=== PATIENT | female | born 2005 | race Caucasian/White ===

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

== ENCOUNTER 2025-02-20 17:29 | Emergency (ER) | payer SELFPAY ==
[2025-02-20 17:31] VITALS: BP 129/81; PULSE 108; RESP 16; TEMP 37.2; O2SAT 99
--- OUTSIDE RECORDS SUMMARY | 2025-02-20 17:32 | XMS_ITS | Clinical Summary ---
Author Organization [facility] Address [address] [place] [address] Phone Care Team Providers Care Director Business Development Name Role Phone Lakesha Tyler MD Primary Care Provider + Sudarshan Mendoza MD Unavailable Lm Hewitt MD Unavailable [phone] Allergies Active Allergy Reactions Criticality Noted Date Comments Diphenhydramine Hives,Rash Medium 06/22/2021 Liquid benadryl only Medications methylPREDNISol one (MEDROL DOSPACK) 4 MG Tablet Therapy Pack See product package insert for dosing schedule 21 Tablet 4 Active Additional Information Patient not taking.Reported on 07/30/2024 pantoprazole (PROTONIX) 40 MG Tablet Delayed Response Take 1 Tablet by mouth daily. 30 Tablet 5 Active meclizine (ANTIVERT) 12.5 MG Tablet Take 2 Tablets by mouth every 8 hours as needed for Dizziness or Nausea. 90 Tablet 3 5 Active Active Problems Problem Noted Date Diagnosed Date Costochondritis 08/12/2024 Assessment & Plan (08/12/2024 12:33 PM MEDICAL SERVICES COORDINATOR): Pain to chest mid sternal, sharp pain, especially with running and inhalation. Denies palpitation. Likely Muscleskeletal. Discussed naproxen Bid as needed. Heating pad to chest to help with discomfort. Physical therapy for stretches and management. Injury of left toe 08/12/2024 Assessment & Plan (08/12/2024 12:36 PM MEDICAL SERVICES COORDINATOR): Toe injury with bruising noted. Able to bend and move toe. Patient reports improvement. Discussed if not improving or symptoms worsening to RTC Vertigo 05/29/2024 Assessment & Plan (08/12/2024 12:35 PM MEDICAL SERVICES COORDINATOR): CN VIII, reports hearing loss to right TM. Unbalance. Denies Headaches. Has had ext ensive workup at [facility] will send to Neurology. Referral placed to neurology. Discussed keeping track of symptoms, if worsening to be evaluated immediately. Nausea 05/29/2024 Lower abdominal pain 05/29/2024 Chest pain 10/23/2023 Assessment & Plan (04/30/2024 9:30 AM CDT): Discussed with patient similar symptoms before. Had reassuring work up in ED. Will Add ESR, CRP and repeat CBC. Started Ibuprofen, and famotidine. Discussed calling cardiology for appointment as symptoms are reappearing. Seek emergent medical attention if symptoms worsen. Assessment & Plan (10/23/2023 8:44 AM CDT): Patient likely with pericarditis following viral infection. Was seen in ED. Lab work negative. Chest Xray negative. Very active in Sports. 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 Sending to Cardiology for clearance and further workup if warranted. Currently no PE, Sports, Working out, or heavy lifting. Per patient chest pain is improving, but still there. Discussed taper of indomethacin 1 capsule TID, also discussed importance of GI prophylaxsis. Start Protonix. Sprain of anterior talofibular ligament of right ankle 06/12/2023 Overview (06/14/2023): 06/2023 [facility] Faby Martinez MD; on review xray was negative. Continue Cam walker boot. Out of all activities. Follow up in 2-3 weeks. Assessment & Plan (06/27/2023 3:11 PM MEDICAL SERVICES COORDINATOR): Patient with improvement significantly. Has good ROM. Jump without difficulty. No pain and tenderness. Will release with slow return to play protocol. If any new onset of symptoms, stop immediately and follow up. Assessment & Plan (06/12/2023 8:03 AM MEDICAL SERVICES COORDINATOR): Xray done at [facility] 1 day ago, discussed small joint effusion, no osseous abnormality, However, patient reports significant more swelling and bruising to right Ankle. Did not think at this time xray would benefit and recommended FU with orthopedics. Referral placed. Discussed ice to ankle. May use wheelchair during school to get to classes to limit weight bearing and discomfort. Discussed crutches as needed. Elevation of foot. Chest tightness 02/18/2020 Assessment & Plan (03/30/2022 2:36 PM CDT): Not currently bad. Assessment & Plan (03/23/2021 10:52 AM CDT): Cardiology at [facility] cleared patient when sent for eval with normal EKG and echo. No history of COVID. Pt with no chest complaints today. Assessment & Plan (02/18/2020 2:33 PM CDT): Pt only to be cleared for sports after [facility] Cardiology clears her due to her chest tightness. Referred her to them today. Encounter for routine child health examination without abnormal findings 09/08/2018 Assessment & Plan (03/23/2021 10:53 AM CDT): Anticipatory guidance done including seat belt safety and water safety. Fire safety and bug avoidance discussed. Sexual preferences, safe sex practices, and discussion on healthy relationships discussed. Maintaining healthy friendships, bullying, and mental health also discussed. Handout given to reiterate important points. Vaccines UTD. Vision screen passed today. PHQ2 negative for depression. Vision Screening Edited by: Rochelle Palumbo Right eye Left eye Both eyes Without correction 20/20 20/20 20/20 Assessment & Plan (09/08/2018 8:53 AM MEDICAL SERVICES COORDINATOR): Flu vaccine administered today. Encounter for routine child health examination without abnormal findings 03/03/2018 Assessment & Plan (03/30/2022 2:38 PM CDT): Anticipatory guidance done including seat belt safety and water safety. Fire safety and bug avoidance discussed. Sexual preferences, safe sex practices, and discussion on healthy relationships discussed. Maintaining healthy friendships, bullying, and mental health also discussed. Handout given to reiterate important points. 5-2-1-0 (5 fruits and vegetables per day, less than 2 hours of screen time per day, at least 1 hour of activity per day, and 0 sweetened beverages) also discussed. Vision screen passed today. Vaccines updated today. Vision Screening Edited by: Riccardo Jiang CMA Right eye Left eye Both eyes Without correction 20/15 20/20 20/15 Assessment & Plan (02/18/2020 2:30 PM CDT): Anticipatory guidance done including seat belt safety and water safety. Fire safety and bug avoidance discussed. Sexual preferences, safe sex practices, and discussion on healthy relationships discussed. Maintaining healthy friendships, bullying, and mental health also discussed. Handout given to reiterate important points. Vaccines UTD. PHQ2 negative for depression. Assessment & Plan (02/04/2019 8:58 AM CDT): Anticipatory guidance done including seat belt safety, avoidance of drugs and alcohol, bullying, monitoring Internet/social media use, knowing child's friends, encouraging independence and self responsibility, showing affection and praise appropriately. Sun safety and bug avoidance discussed. Mental health counseling discussed. Discussed healthy diet and exercise including 5-2-1-0 (5 fruits and vegetables per day, less than 2 hours of screen time per day, at least 1 hour of activity per day, and 0 sweetened beverages. Vaccines up to date. Hearing and vision screens normal. Growth and development appropriate. Patient with dental home. School physical form completed and given to mom. Assessment & Plan (03/03/2018 10:39 AM CDT): Maxime is a 12 year old female with history of ADHD who presents for a sports physical and WCC. No concerns or complaints at this time. Plan: - Age Appropriate anticipatory guidance discussed: avoiding smoking, alcohol, and drugs, safe sex education, sleep hygiene, physical activity, healthy nutrition, seat belts, sun safety, limit screen time, healthy coping skills - Cleared for sports - sports and school form completed and given to mother. Copy made to keep on file in office. - Immunizations: UTD - Lipid and HgbA1c obtained 1 year ago. Results were unremarkable at that time. Repeat at age 15. - PHQ-2: score of 0 within the past 1 year, negative for depression. Repeat 07/26. - Has dentist- importance of regular dental visits - Follow up in [address] [facility] Sports physical 03/03/2018 Assessment & Plan (03/30/2022 2:39 PM CDT): Pt medically stable for participation in sports. Heart auscultated in 3 different positions. No history of COVID. Sports physical form completed today. Assessment & Plan (03/23/2021 10:55 AM CDT): Pt medically stable for participation in sports. Heart auscultated in 3 different positions. No history of COVID. Sports physical form completed today. Overweight child 10/31/2017 Assessment & Plan (03/23/2021 10:54 AM CDT): Pt eating much healthier and has lost 11lbs. Celebrated her on her success and advised her to maintain a healthy lifestyle. Assessment & Plan (02/18/2020 2:04 PM CDT): Extensively counseled pt on 5-2-1-0 (5 fruits and vegetables per day, less than 2 hours of screen time per day, at least 1 hour of activity per day, and 0 sweetened beverages). Assessment & Plan (03/03/2018 9:32 AM CDT): Patient's BMI is 91 %ile (Z= 1.35) based on CDC 2-20 Years BMI-for-age data using vitals from 03/03/2018. Plan: Extensive dietary counseling including 5-2-1-0 (5 fruits and vegetables per day, less than 2 hours of screen time per day, at least 1 hour of activity per day, and 0 sweetened beverages) done today. Assessment & Plan (02/27/2018 9:35 AM CDT): Extensive dietary counseling including 5-2-1-0 (5 fruits and vegetables per day, less than 2 hours of screen time per day, at least 1 hour of activity per day, and 0 sweetened beverages) done today. Assessment & Plan (10/31/2017 5:35 PM CDT): Pt doing well maintaining weight since last visit. Pt states that she is very active and also eats less. Feels proud for not gaining weight. Resolved Problems Problem Noted Date Diagnosed Date Resolved Date Jaw pain 09/08/2018 03/23/2021 Assessment & Plan (02/18/2020 2:02 PM CDT): Improved. Assessment & Plan (09/08/2018 8:52 AM MEDICAL SERVICES COORDINATOR): Pt feels like jaw locks up intermittently for past year, and now is a bit sore. Told pt to follow up with dentist. If no improvement with dentist's regime, will consider OMFS referral. Curvature of spine 03/03/2018 8 Assessment & Plan (03/03/2018 10:40 AM CDT): Slight curvature of thoracic spine noted on exam today. Denies back pain. Plan: - Xray ordered - Will follow up after xray results Viral warts 10/31/2017 03/30/2022 Overview (03/23/2021): 01/2018- Pt seen by [facility] Sales Systems Engineer, Dr. Jennifer Garcia. Pt had cryotherapy done for 3 warts. Pt was to follow up in 4 weeks. Overview: onset age 11 01/30/18 #3, <5 mm, palm; LN2 to all; garlic; anticipatory guidance onset age 11 01/30/18 #3, <5 mm, palm; LN2 to all; garlic; anticipatory guidance Assessment & Plan (03/23/2021 10:54 AM CDT): Warts are gone. Assessment & Plan (10/31/2017 5:34 PM CDT): As per Mom, pt has tried OTC freezing treatments x 3 without resolution or any improvement in warts. Dermatology referral placed today with appt on January 30 at 1330 at [facility]. Sales Systems Engineer staff recommended that pt try Salicylic Acid 40% with duct tape on top, and removal 24-48hrs after. Handout given to Mom on this technique via [facility] D[facility]at[facility]. Attention deficit hyperactiv ity disorder (ADHD), combined type 03/25/2017 03/23/2021 Overview (06/11/2018): 06/2018- Follow up [place] received by Ms. Morrissey, Science and algology teacher, AM and PM classes; negative for ADHD as there were no problems with classroom behavior performance, and teacher is not for math, reading, written expression so the academic performance section was not filled in; 03/16 2-3 responses on #1-9- very often- difficulty sustaining attention to tasks, easily distracted by extraneous stimuli, often- fails to give attention to details, does not listen when spoken to directly, does not follow through on instructions, difficulty organizing tasks and activities, avoids engaging in tasks that require sustained mental effort, loses things necessary for tasks, forgetful in daily activities; 09/13 2-3 responses for #10-18- often- fidgets, leaves seat in classroom, driven by a motor; negative for ODD and anxiety. 06/2018- Follow up [place] received by Ms. Ocampo, children teacher, 6th hr- 09/13 2-3 responses on #1-9- often- difficulty sustaining attention to tasks, avoids, dislikes to engage in tasks that require sustained mental effort, easily distracted by extraneous stimuli; 09/13 2-3 responses on #10-18 including very often- leaves seat in classroom, often- talks excessively, interrupts others; also positive for bullying others often, pt also often blames self or feels lonely, relationship with peers was somewhat of a problem- overall was negative for ADHD, ODD, anxiety 06/2018- Follow up [place] received by Mrs. Hoffmann, social studies teacher, morning and afternoon classes- 09/13 2- responses on #1-9- very often- difficulty sustaining attention, often- fails to give attention to details, easily distracted by extraneous stimuli, / 2-3 repsponses on #10-18- very often- difficulty playing quietly, talks excessively, often- fidgets, leaves seat, is driven by motor, somewhat of a problem- reading, written expression, relationship with peers- overall was negative for ADHD, ODD, anxiety, comments- Maxime is a sweet girl, but is often wrapped in drama with peers. She tries hard most days, but is often chatty. She has a wonderful spirit and is very easy to please. She is respectful to adults. 07/29/17- Follow up [place] received by Ms. Morrissey as afternoon medication was specifically started for this class (LOCO/VLADIMIR). 11/13 2-3 responses on #1-9, 8/ 2-3 responses on #10-18. Pt positive for ADHD, hyperactive type. Teacher also believes that readying, writing, mathematics, and relationship with peers are somewhat of a problem. These are all unchanged since starting afternoon medications. Possible that pt has difficulty with subject, further hindering her behavior. Will ask patient what her grades are specifically for this class. Assessment & Plan (02/18/2020 2:32 PM CDT): Pt stable off medications, doing very well in school. Assessment & Plan (09/08/2018 8:51 AM MEDICAL SERVICES COORDINATOR): Pt doing well on Concerta and Adderall IR. Will represcribe meds today. Vanderbilts were negative from teachers, given on 06/2018. Pt to follow up in 3mo for ADHD follow up. Assessment & Plan (06/09/2018 9:00 AM MEDICAL SERVICES COORDINATOR): Mom's [place] negative for ADHD symptoms today. Pt doing very well on medications. Teachers for main subjects given Vanderbilts today. Meds refilled. Will follow up with patient in 3mo if teacher Vanderbilts are without significant concerns. Assessment & Plan (02/27/2018 9:21 AM CDT): Adderall refill given to pt. Concerta refill not needed at this time as per Mom. Pt to return in 3mo for ADHD management. Assessment & Plan (11/25/2017 9:43 AM CDT): Pt made great improvement with higher afternoon dose of Adderall. Pt to continue medications, both of which were refilled today. Mom told that some literature suggests keeping pt on medications during summer, although Mom would like to have pt off of medications. Mom told she can see how pt does with and without medication, and base her decision off of that whether to give meds or not. Assessment & Plan (10/31/2017 5:36 PM CDT): Last period is still problematic for patient. Teacher did not see any difference from starting Ritalin at lunch time. Will change afternoon medication and dose to Adderall 7.5mg to see if this helps. Will also discuss with [facility] family history of bipolar disorder and taking stimulants with this history. Dr. Olmos stated that patients with family history of mood disorders can still be tried on stimulants 2x with close follow up. Mom to call teacher Ms. Morrissye, and see if pt has gotten any better with med change in 1-2 weeks. I will also call pt in 1 week to see how new medication and dosage is going. Encounters Date Type Department Care Team Description 02/15/2025 10:03 PM CDT - 02/15/2025 11:15 PM CDT Emergency [facility] [address] [place] [address] Oniel Ordaz MD Discharge Disposition: LWBS 02/15/2025 Travel 01/15/2025 Refill [facility] - [place] [address] [place] [address] Sudarshan Mendoza MD Medication Refill 01/15/2025 [facility] [place] [address] [address] Lakesha Tyler MD Medication Refill from Last 3 Months Immunizations Immunization Administration Dates Next Due DTAP VACCINE 10/28/2006 DTAP-IPV 02/20/2010 DTAP/HEPB/IPV Vaccine 02/15/2006,2005,09/06 Hepatitis A, Pediatric, Unsp ecified Formulation 09/25/2007,10/28/2006 Hepatitis B Vaccine, Pediatric/adolescent 2005 Hib Vaccine,unspecified Formulation 08/08,01/16/2006,2005,09/13 Human Papillomavirus (HPV) 9 -valent Vaccine 10/31/2017,02/25/2017 Influenza Vaccine, Quadrivalent, PF 09/08/2018 MMRV 02/20/2010,10/28/2006 Meningococcal MCV4O 03/30/2022 Meningococcal Vaccine 02/25/2017 Pneumococcal Vaccine Peds - 7 Valent ,01/16/2006,2005,09/13 TDAP Vaccine 02/25/2017 Family History Medical History Relation Name Comments No Known Problems Father No Known Problems Maternal Grandfather Chronic Obstructive Pulmonary Disease Maternal Grandmo ther Clotting Disorder Maternal Grandmother Asthma Mother Elevated Lipids Mother No Known Problems Paternal Grandfather No Known Problems Paternal Grandmother Relation Name Status Comments Father Alive Maternal Grandfather Alive Maternal Grandmother Mother Alive Paternal Grandfather Alive Paternal Grandmother Alive Social History Tobacco Use Types Packs/Day Years Used Date Smoking Tobacco: Never Passive Smoke Exposure: Yes Smokeless Tobacco: Never Tobacco Cessation:Counseling Given: Not Answered Alcohol Use Standard Drinks/Week Comments No 0 (1 standard drink = 0.6 oz pur e alcohol) PHQ-2 Answer Date Recorded Total Score - Questions 1-9 0 03/08 Sexually Active Control Partners Comments Never Comments No Sex and Gender Information Value Date Recorded Sex Assigned at Not on file Legal Sex Female 11:45 AM CDT Gender Identity Not on file Sexual Orientation Not on file Last Filed Vital Signs Vital Sign Reading Time Taken Comments Blood Pressure 131/69 02/15/2025 9:12 PM CDT Pulse 68 02/15/2025 9:12 PM CDT Temperature 35.9 C (96.6 F) 02/15/2025 9:12 PM CDT Respiratory Rate 16 02/15/2025 9:12 PM CDT Oxygen Saturation 100% 02/15/2025 9:12 PM CDT Inhaled Oxygen Concentration - - Weight 65.8 kg (145 lb) 02/15/2025 9:12 PM CDT Height 160 cm (5' 3) 02/15/2025 9:12 PM CDT Body Mass Index 25.69 02/15/2025 9:12 PM CDT Plan of Treatment Health Maintenance Due Date Last Done Comments Hepatitis C Virus (HCV) Screening 2005 Meningococcal B Immunization (1 of 2 - Standard) 2021 SARS-COV-2 Immunization (2 - season) 2024 06/14/2021 Influenza Immunization (#1) 2025 09/08/2018 DTaP/Tdap/Td Immunization (7 - Td or Tdap) 02/25/2027 02/25/2017, 02/20/2010, 10/28/2006, Additional history exists Respiratory Syncytial Virus (RSV) Immunization (Adult) (1 - 1-dose 75+ series) 2080 Hepatitis B Immunization Completed 006, 2005, 2005, Additional history exists Pneumococcal Immunization Combined Aged Out 08/20/2006, 01/16/2006, 2005, Additional history exists No longer eligible based on patient's age to complete this topic Hepatitis A Immunization Discontinued 09/25/2007, 10/07 Measles Mumps Rubella (MMR) Immunization Discontinued 02/20/2010, 10/28/2006 Polio (IPV) Immunization Discontinued 010, 02/15/2006, 2005, Additional history exists Varicella Immunization Discontinued 02/20/2010, 2006 Human Papillomavirus (HPV) Immunization Completed 10/31/2017, 02/25/2017 Meningococcal Immunization (ACWY) Completed 03/30/2022, 02/25/2017 Rotavirus Immunization Aged Out No lo nger eligible based on patient's age to complete this topic Procedures Procedure Name Priority Date/Time Associated Diagnosis Comments GROUP A STREP BY PCR STAT 02/15/2025 9:15 PM CDT from Last 3 Months Results * GROUP A STREP BY PCR (02/15/2025 9:15 PM CDT) GROUP A STREP BY PCR NOT DETECTED NOT DETECTED 02/15/2025 9:53 PM CDT [facility] Swab STRUCTURE OF ANTERIOR PORTION OF NECK / Unknown Non-Phlebotomy Collection / Unknown 02/15/2025 9:15 PM CDT 02/15/2025 9:25 PM CDT us Oniel Ordaz MD MICROBIOLOGY - GENERAL OR DERABLES Final Result [facility] [address] [place] [id number] from Last 3 Months Insurance MEDICAID [employer] Care Teams Director Business Development Relationship Specialty Start Date End Date Lakesha Tyler MD PCP - General Pediatrics 02/25/17 Sudarshan Mendoza MD 2 [facility] [address] [address] Consulting Physician Cardiology 05/29/24 Lm Hewitt MD [address] [place] [address] Consulting Physician Neurology 10/13/24
--- OUTSIDE RECORDS SUMMARY | 2025-02-20 17:32 | XMS_ITS | Clinical Summary ---
Author Organization [facility] Address [address] [place] [address] Care Team Providers Care Assistant Professor Of Criminal Justice Name Role Phone Lakesha Tyler MD Primary Care Provider + Source Comments [facility],non-owned Affiliates and Associated Physician Practices is amultiple site organization consisting of ambulatory clinics and hospital sitesin [place], [place], [place] and [place]. This disclosure is being madepursuant to the Care Everywhere program and may not contain all information available regarding this patient. Last updated 18.[facility] Allergies Active Allergy Reactions Criticality Noted Date Comments Diphenhydramine Rash Medium 08/06/2024 Liquid benadryl only Medications * Be aware that medications may not be up to date on this document. Alwaysverify current medications with the patient. Methylphenidate HCl (RITALIN PO) Active Pediatric Multiple Vit-C-FA (FLINSTONES GUMMIES OMEGA-3 DHA PO) Active melatonin 3 MG tablet Take 3 mg by mouth at bedtime Active methylphenidate CR (CONCERTA) 18 MG tablet Take 7.5 mg by mouth every morning Active orphenadrine citrate CR 12hr (Norflex) 100 MG tablet Take 1 (one) tablet by mouth every 12 hours as needed for Muscle Spasms 15 tablet 04/28/2024 Active Active Problems Problem Noted Date Diagnosed Date Warts 01/30/2018 Overview (01/31/2018): onset age 11 01/30/18 #3, <5 mm, palm; LN2 to all; garlic; anticipatory guidance Social History Tobacco Use Types Packs/Day Years Used Date Smoking Tobacco: Never Smokeless Tobacco: Never Tobacco Cessation:Counseling Given: Not Answered Alcohol Use Standard Drinks/Week Comments Never 0 (1 standard drink = 0.6 oz pur e alcohol) AUDIT-C Answer Date Recorded Q1: How often do you have a drink containing alcohol? Never 08/06/2024 Q2: How many drinks containi ng alcohol do you have on a typical day when you are drinking? Patient does not drink Q3: How often do you have si x or more drinks on one occasion? Never 08/06/2024 Comments No Sex and Gender Information Value Date Recorded Sex Assigned at Not on file Legal Sex Female 4:49 PM CDT Gender Identity Not on file Sexual Orientation Not on file Last Filed Vital Signs Vital Sign Reading Time Taken Comments Blood Pressure 140/107 08/06/2024 10:29 PM LIBRARY MANAGER Pulse 96 08/06/2024 10:29 PM LIBRARY MANAGER Temperature 36.6 C (97.8 F) 08/06/2024 10:29 PM LIBRARY MANAGER Respiratory Rate 20 08/06/2024 10:29 PM LIBRARY MANAGER Oxygen Saturation 98% 08/06/2024 10:29 PM LIBRARY MANAGER Inhaled Oxygen Concentration - - Weight 68 kg (150 lb) 08/06/2024 10:29 PM LIBRARY MANAGER Height 160 cm (5' 3) 08/06/2024 10:29 PM LIBRARY MANAGER Body Mass Index 26.57 08/06/2024 10:29 PM LIBRARY MANAGER Plan of Treatment Health Maintenance Due Date Last Done Comments HIV SCREENING 2020 HPV VACCINE (1 - 3-dose series) 2020 CHLAMYDIA/GONORRHEA SCREENING 2021 MENINGOCOCCAL (Group B) VACC INE SHARED DECISION-MAKING (1 of 2 - Standard) 2021 HEPATITIS C SCREENING 07/12/2023 COVID-19 VACCINE (2 - 2023-2 5 season) 2024 06/14/2021 DEPRESSION SCREENING 07/08/2024 DTAP/TDAP/TD VACCINES (1 - Tdap) 2024 HEPATITIS B VACCINE (1 of 3 - 19+ 3-dose series) 2024 INFLUENZA VACCINE (#1) 2025 09/08/2018 ZOSTER VACCINE (1 of 2) 2055 HIB VACCINE Aged Out No longer eligi ble based on patient's age to complete this topic MENINGOCOCCAL GROUPS A/C/Y/W VACCINE Aged Out No longer eligible b ased on patient's age to complete this topic PNEUMOCOCCAL VACCINE Aged Out No long er eligible based on patient's age to complete this topic Insurance MEDICAID AETNA [facility] MEDICAID - OUT OF [facility] MED[facility] - OUT OF STATE [facility] - [facility] OF [facility] MED[facility] - OUT OF STATE MEDICAID [employer] [facility] MEDICAID - OUT OF STATE Care Teams Assistant Professor Of Criminal Justice Relationship Specialty Start Date End Date Lakesha Tyler MD PCP - General Pediatrics 01/30/18
--- OUTSIDE RECORDS SUMMARY | 2025-02-20 17:32 | XMS_ITS | Encounter Summary ---
Author Organization [facility] Address [address] [place] [address] Phone Care Team Providers Care Medical Transcription Supervisor Name Role Phone Lakesha Tyler MD Primary Care Provider + Yissel Almaguer APRN, CNP Unavailable + [phone] Sudarshan Mendoza MD Unavailable Lm Hewitt MD Unavailable +[phone] Reason for Visit * Reason Comments Medication Refill Encounter Details Date Type Department Care Team (Late st Contact Info) Description 07/17/2022 Refill [facility] - Primary Care - [place] [address] [place] [address] Lakesha Tyler MD [address] [place] [address] Medication Refill Social History Tobacco Use Types Packs/Day Years Used Date Smoking Tobacco: Passive Smo ke Exposure - Never Smoker Smokeless Tobacco: Never Alcohol Use Standard Drinks/Week Comments No 0 [...] on file Sexual Orientation Not on file documented as of this encounter Miscellaneous Notes * Telephone Encounter - Mary Browne RN - 07/23/2022 9:21 AM HYDROGEN PLANT OPERATIONS MANAGER Contacted mom. She asked that I contact her next Saturday to schedule the lab. Voiced understanding. Reminder set. Refusing script for now until labs complete. OGEN PLANT OPERATIONS MANAGER * Telephone Encounter - Mary Browne RN - 07/17/2022 10:59 AM HYDROGEN PLANT OPERATIONS MANAGER LVM for mom to call back. Wanting to see if patient still taking iron? Need lab rescheduled. OGEN PLANT OPERATIONS MANAGER * Telephone Encounter - Mary Browne RN - 07/17/2022 7:59 AM HYDROGEN PLANT OPERATIONS MANAGER Patient was supposed to have labs drawn end of June but no showed lab appt. Will call mom latertoday to reschedule labs. OGEN PLANT OPERATIONS MANAGER documented in this encounter Plan of Treatment Not on file documented as of this encounter Visit Diagnoses Not on filedocumented in this encounter Additional Health Concerns Infection Onset Date Last Indicated Resolved Time COVID - 19 10/10/2023 10/10/2023 10/10/2023 10:2 2 AM CDT Assessment Noted Time PHQ-9 Depression Total Score: 0 03/23/20 10:00 AM CDT documented as of this encounter Care Teams Medical Transcription Supervisor Relationship Specialty Start Date End Date Lakesha Tyler MD PCP - General Pediatrics 02/25/17 Yissel Almaguer, ASSISTANT PROFESSOR OF SPANISH, PAPER TUBE MACHINE OPERATOR [address] [facility] [place] [address] Nurse Practitioner Cardiology 10/23/23 09/28/24 Sudarshna Mendoza MD [address] [id number] Consulting Physician Cardiology 05/29/24 Lm Hewitt MD [address] [place] [id number] Consulting Physician Neurology 10/13/24 documented as of this encounter
--- OUTSIDE RECORDS SUMMARY | 2025-02-20 17:32 | XMS_ITS | Clinical Summary ---
Author Organization [facility] Address [address] [place] [address] Phone Care Team Providers Care Manager Workers Compensation Name Role Phone Lakesha Tyler MD Primary Care Provider + Allergies Active Allergy Reactions Criticality Noted Date Comments Diphenhydramine Hives Medium 05/08/2023 Pt states this only happened with liquid benadryl Medications [id number] acid-lutein 200-137.5 mcg tablet,chewable Take 1 tablet by mouth Active ibuprofen 200 mg tab/cap Take 2 tablet/caps ule (400 mg total) by mouth every 8 (eight) hours as needed Active Active Problems No known active problems Family History Medical History Relation Name Comments No Known Problems Mother Relation Name Status Comments Mother Social History Tobacco Use Types Packs/Day Years Used Date Smoking Tobacco: Never Tobacco Cessation:Counseling Given: Not Answered Alcohol Use Standard Drinks/Week Comments Not Currently 0 (1 standard drink = 0.6 oz pur e alcohol) Personal Safety Answer Date Recorded Have you ever been in or are you currently in a harmful physical or emotional relationship or is someone making you feel afraid or unsafe? Denies 05/11/2024 Comments No Sex and Gender Information Value Date Recorded Sex Assigned at Not on file Legal Sex Female 9:03 AM CDT Gender Identity Not on file Sexual Orientation Not on file Obstetrics History Growth Chart Information Age Height Weight [id number]-hqbu th Percentile BMI Percentile Head Circum Head Circum Percentile Date 18 years 160 cm (5' 3) 68 kg (150 lb) 87.00%* 2023 17 years 160 cm (5' 3) 61.2 kg (135 lb) 76.02%* 2022 17 years 160 cm (5' 3) 61.2 kg (135 lb) 76.02%* 2022 17 years 62.7 kg (138 lb 3.7 oz) 2022 14 years 158 cm (5' 2.21) 68.4 kg (150 lb 12.8 oz) 94.54%* 2019 * [facility] (Girls, 2-20 Years) Last Filed Vital Signs Vital Sign Reading Time Taken Comments Blood Pressure 117/68 05/11/2024 8:30 AM SWATCH FOLDER Pulse 86 05/11/2024 8:55 AM SWATCH FOLDER Temperature 36.7 C (98.1 F) 05/11/2024 5:06 AM SWATCH FOLDER Respiratory Rate 20 05/11/2024 8:55 AM SWATCH FOLDER Oxygen Saturation 96% 05/11/2024 8:55 AM SWATCH FOLDER Inhaled Oxygen Concentration - - Weight 68 kg (150 lb) 05/11/2024 5:04 AM SWATCH FOLDER Height 160 cm (5' 3) 05/11/2024 5:04 AM SWATCH FOLDER Body Mass Index 26.57 05/11/2024 5:04 AM SWATCH FOLDER Body Mass Index Percentile 87.00% 05/11/2024 5:0 4 AM SWATCH FOLDER Growth Chart: [facility] (Girls, 2- 20 Years) Plan of Treatment Health Maintenance Due Date Last Done Comments Depression Screening 2005 Hepatitis C Screening 2005 Meningococcal B Vaccine (1 o f 2 - Standard) 2021 Regular Well Visit/Exam 18-64 2023 Covid-19 Vaccine (2 - 2023-2 5 season) 2024 06/14/2021 Influenza Vaccine (#1) 2025 09/08/2018 DTaP/Tdap/Td Vaccine (7 - Td or Tdap) 02/25/2027 02/25/2017, 02/20/2010, 10/28/2006, Additional history exists Hepatitis B Screening Completed 02/15/2006 , 2005, 2005, Additional history exists Pneumococcal vaccine <65 Completed 007, 01/16/2006, 2005, Additional history exists Varicella Vaccines Completed 02/20/2010, 10/28/2006 HPV Vaccines Completed 10/31/2017, 02/25/2017 Meningococcal Vaccine Completed 03/30/2022, 017 Insurance A[employer]NA [facility] [employer] [facility] [employer] [facility] Care Teams Manager Workers Compensation Relationship Specialty Start Date End Date Lakesha Tyler MD PCP - General Pediatrics 02/19/20
--- NOTE | 2025-02-20 17:44 | ECG_ITS ---
Test Date: 2025-02-20 17:42:32 Measurements Intervals [place] Rate: 84 P: 42 ND: 139 QRS: 89 QRSD: 73 T: 68 QT: 324 QTc: 385 Interpretive Statements SINUS RHYTHM WITH SINUS ARRHYTHMIA NORMAL ECG No previous ECG available for comparison Electronically Signed On 02-21-2025 07:28:51 CDT by Devin Lambert D.O.
--- NOTE | 2025-02-20 17:56 | ED_ITS ---
HPI - General Adult General Chief complaint: Unspecified Stated complaint: Blood Pressure Problem Time Seen by Provider: 02/20/25 17:32 Source: patient Mode of arrival: ambulatory Limitations: no limitations History of Present Illness HPI narrative: 19-year-old female presents to [facility] complaints of sore throat, bilateral ear fullness, right is worse than left, intermittent nausea and dizziness for the past 3 weeks. Patient reports that she went to local emergency room 2 days ago but left AMA as the wait was too long. Patient denies sick contacts. Patient denies recent travel. Patient reports she has a history of vertigo. Patient reports that she is eating and drink with no difficulties. Onset (ago): week(s) (3) Relieving factors: none Exacerbating factors: none Related Data Allergies Allergy/AdvReac Type Severity Reaction Status Date / Time diphenhydramine (From Allergy Intermediate Hives Verified 02/20/25 17:32 Benadryl) Review of Systems Constitutional: Constitutional: Reports body ache(s), Reports chills, Denies difficulty sleeping, Denies excessive sweating, Reports fatigue, Denies fever(s), Denies frequent falls, Reports headache(s), Denies increased appetite, Denies lethargy, Denies malaise and Denies night sweats ENT: Reports dizziness, Reports headache(s), Denies hearing loss, Denies hoarseness, Denies lip swelling, Denies tinnitus, Denies sinus pain and Reports sore throat Cardiovascular: Cardiovascular: Denies chest pain, Denies chest pain at rest and Denies chest pain with activity Respiratory: Respiratory: Denies chest congestion, Denies cough, Denies hemoptysis and Denies wheezing Gastrointestinal: Gastrointestinal: Denies abdominal pain, Denies diarrhea, Reports nausea and Denies odynophagia Musculoskeletal: Musculoskeletal: Denies arthralgias and Denies joint swelling Neurologic: Denies vertigo, Reports dizziness, Denies syncope and Denies frequent falls PMFSH Past Medical History Medical History No acute medical problems Family History Family History Other High cholesterol Social History Social History Smoking status: Never smoker Alcohol intake: never Living arrangements: with family Occupation/Education: student Comments At time of signature, I agree with nursing past medical, surgical, social and family history. There is no relevant family history pertinent to the presenting complaint. Exam Const: General: cooperative, healthy appearing, comfortable, no acute distress, well developed, alert, awake and Physically active HENMT: Head: normal to inspection Ears: external ears normal and other (Mild erythema noted to right TM with mild amount of clear fluid noted) Face/Nose/Sinus: Normal external nose present and Normal nares present Face and sinus: normal facial exam Mouth: Yes Normal oral and palatal mucosa present, Yes lip normal and Yes tongue normal Throat: other (Mild erythema noted to posterior pharynx) Neck: Neck: normal visual inspection, full ROM and no lymphadenopathy Resp: Effort & Inspection: normal respiratory effort, able to speak in complete sentences, normal respiratory pattern, no audible wheezes and no cough Cardio: Rate: regular rate, not bradycardic and not tachycardic Rhythm: regular rhythm and regular rhythm Skin: General skin exam: normal color and no rashes or lesions noted Neuro: General: oriented to person, oriented to place, oriented to time and patient oriented x3 Extrem: General: normal to inspection Psych: Appearance: grossly normal and well kempt Mental Status: mental status grossly normal Affect: normal affect Attitude: cooperative Thought process: Normal thought process present Course Course Level of Care: Express Care Visit Vital Signs Vital signs: Vital Signs Temperature 37.2 C 02/20/25 17:31 Pulse Rate 108 H 02/20/25 17:31 Respiratory Rate 16 02/20/25 17:31 Blood Pressure 129/81 02/20/25 17:31 Pulse Oximetry 99 02/20/25 17:31 Oxygen Delivery Room Air 02/20/25 17:31 Temperature 37.2 C 02/20/25 17:31 Pulse Rate 108 H 02/20/25 17:31 Respiratory Rate 16 02/20/25 17:31 Blood Pressure 129/81 02/20/25 17:31 Pulse Oximetry 99 02/20/25 17:31 Oxygen Delivery Room Air 02/20/25 17:31 Medical Decision Making MDM Narrative Medical decision making narrative: Discussed lab results with patient. Patient agrees take antibiotic as prescribed. Patient agrees to alternate Motrin and Tylenol as needed. Work excuse provided for patient. Educated patient proceed to the emergency room if symptoms worsen Differential Diagnosis Differential Diagnosis: Viral illness, bacterial illness, influenza Vital Signs Vital Signs: Vital Signs Temperature 37.2 C 02/20/25 17:31 Pulse Rate 108 H 02/20/25 17:31 Respiratory Rate 16 02/20/25 17:31 Blood Pressure 129/81 02/20/25 17:31 Pulse Oximetry 99 02/20/25 17:31 Oxygen Delivery Room Air 02/20/25 17:31 Temperature 37.2 C 02/20/25 17:31 Pulse Rate 108 H 02/20/25 17:31 Respiratory Rate 16 02/20/25 17:31 Blood Pressure 129/81 02/20/25 17:31 Pulse Oximetry 99 02/20/25 17:31 Oxygen Delivery Room Air 02/20/25 17:31 Lab Data Labs: Positive rapid strep, negative influenza, negative COVID ECG Data EKG #1: ECG completion date: 02/20/25 ECG completion time: 17:42 EKG Interpretation: normal rate, sinus rhythm, no ectopy and no ST changes Critical Care Time Critical Care Time Critical Care Time: No Discharge Plan Discharge Clinical Impression: Streptococcal sore throat, Acute right otitis media Patient Disposition: Home Condition: Stable Instructions: Antibiotic Form, Strep Throat (ED) Additional Instructions: You tested positive for Group A strep. Take the entire course of antibiotics. Throw away your current toothbrush and begin using a new toothbrush in 48 hours in order to prevent re-infection. Sanitize all reusable water bottles. Do not share items with others. Salt water gargles may alleviate some of the throat discomfort. You can take tylenol or ibuprofen per the package instructions for pain/fever. Patient Language: Divehi Prescriptions: New amoxicillin 875 mg tablet 875 mg PO Q12H 10 Days Qty: 20 0RF Follow-up/Referrals: Jayson,Lakesha Lee MD [Primary Care Provider] - Stand Alone Forms: Work/School Release IP Time of Disposition: 18:08
[2025-02-20 18:01] LABS: EDCOVIDSCREEN Negative (Negative); EDINFLUASCREEN Negative (Negative); EDINFLUBSCREEN Negative (Negative); EDSTREPNEGPOS1 Positive (Negative)
== END 2025-02-20 18:15 | disposition home or self-care (01) ==
PROVIDERS: Emergency Provider Nurse Practitioner Family; PCP Student in an Organized Health Care Education/Training Program
DX: J02.0 Streptococcal pharyngitis (principal); H66.91 Otitis media, unspecified, right ear; Z20.822 Contact with and (suspected) exposure to COVID-19
CPT/HCPCS: 87426; 87804; 87880; 93005; 99213; G0463